=== PATIENT | male | born 2000 | race Caucasian/White ===

== ENCOUNTER 2024-04-19 11:27 | Outpatient (AMB) | payer OTHER, SELFPAY ==
[2024-04-19 11:30] VITALS: BP 126/78; PULSE 102; O2SAT 99; BMI 25.5
--- NOTE | 2024-04-19 11:30 | MHC.PC.OV ---
Vital Signs 04/19/24 11:30 Height 6 ft 3 in Weight 204 lb BMI 25.5 BP 126/78 Blood Pressure Location Lt brachial Position Sitting Pulse 102 H Pulse Source Pulse Oximeter Pulse Oximetry (%) 99 Oxygen Delivery Method Room Air Intake Visit Reasons: establish care Rn Medicare Required: No Accompanied by: Self / Same As Patient Allergies No Known Allergies Allergy (Verified 04/19/24 11:52) Medication List - Last Reconciled 04/19/24 by Casey Bartlett PA-C loratadine (Claritin) 10 mg PO DAILY Tobacco use date assessed: 04/19/24 Dental Screening Dental Screen Date: 04/19/24 Did you have a dental visit in the last 12 months?: Yes Did you have a dental problem in the last 6 months where you did not have access to dental care?: No Was dental information given to patient?: Patient has dentist HPI establish care HPI Details Patient is a 23-year-old male here today for establish care visit. Previous PCP was at a pediatrics office at [place]. Patient has a past medical history significant for asthma, environmental allergies, Raynaud's syndrome. .. asthma: Has been fairly well controlled without much use of an albuterol inhaler. His like to have albuterol inhaler on hand just in case him most of use issues I his allergies to which he has taken loratadine with good relief vaccines: Up-to-date [facility] Family History (Updated 04/19/24 @ 12:01 by Casey Bartlett PA-C) Mother Thyroid cancer ALS (amyotrophic lateral sclerosis) Social History (Updated 04/19/24 @ 12:01 by Casey Bartlett PA-C) Housing: House Patient Tobacco Use Status: Never used Tobacco e-Cigarette/Vaping Use: Never Used Second Hand Smoke Exposure: No service: No Current occupational status: employed Current occupation: [employer] Current occupational exposures/hazards: No Cognitive needs: No Hearing needs: No Vision needs: No Questionnaire PHQ-9 Over the last 2 weeks, how often have you been bothered by any of the following problems? 1. Little interest or pleasure in doing things: not at all 2. Feeling down, depressed, or hopeless: not at all 3. Trouble falling or staying asleep, or sleeping too much: several days 4. Feeling tired or having little energy: several days 5. Poor appetite or overeating: not at all 6. Feeling bad about yourself - or that you are a failure or have let yourself or your family down: not at all 7. Trouble concentrating on things, such as reading the newspaper or watching television: not at all 8. Moving or speaking so slowly that other people could have noticed. Or the opposite - being so fidgety or restless that you have been moving around a lot more than usual: not at all 9. Thoughts that you would be better off or of hurting yourself in some way: not at all Total score: 2 Depression Screening Interpretation: Negative Depression Screening Done: Yes [id number] - PHQ-9 Billing: Yes Source: Developed by Drs. Chinedu Washington, Shell Toribio, Tk Parra and colleagues, with an educational yasemin from [employer]. Thrive Questionnaire Date Thrive assessed: 04/19/24 I am a: Patient What is your living situation today?: I have a steady place to live Within the past 12 months, did the food you bought not last and you didn't have the money to get more?: Never true Within the past 12 months, did you worry whether your food would run out before you got money to buy more?: Never true Do you have trouble paying for medicines?: No Do you have trouble getting transportation to medical appointments?: No Do you have trouble paying your heating and electricity bill?: No Do you have trouble taking care of your child, family member or friend?: No Do you have trouble with day-to-day activities such as bathing, preparing meals, shopping, managing finances, etc.?: No Are you currently unemployed and looking for a job?: No Are you interested in more education?: No Please select the resources that you would like help with: None Currently or been in a relationship where the following occur: No concerns reported THRIVE Score: 0 AUDIT C Alcohol Use Questionnaire (AUDIT-C) 1. How often do you have a drink containing alcohol?: 2-4 times a month 2. How many drinks containing alcohol do you have on a typical day when you are drinking?: 3 or 4 3. How often do you have six or more drinks on one occasion?: Less than monthly Total Score: 4 IVETTE-7 AMB Questionnaire IVETTE-7 Feeling nervous, anxious, or on edge: 0 = Not at all Not being able to stop or control worryin = Not at all Worrying too much about different things: 0 = Not at all Trouble relaxin = Not at all Being so restless that it is hard to sit still: 0 = Not at all Becoming easily annoyed or irritable: 0 = Not at all Feeling afraid as if something awful might happen: 0 = Not at all Total IVETTE-7 score (0-4 normal; 5-9 mild; 10-14 moderate; 15-21 severe): 0 Source: Developed by Drs. Chinedu Washington, Shell Toribio, Tk Parra and colleagues, with an educational yasemin from [employer]. IVETTE-7 Assessment Billing IVETTE-7 Assessment Tool: IVETTE-7 Assessment 70997 ACT Questionnaire In the past 4 weeks, how much of the time did your asthma keep you from getting as much done at work, school or at home?: None of the time During the past 4 weeks, how often have you had shortness of breath?: Not at all During the past 4 weeks, how often did your asthma symptoms wake you up at night or earlier than usual in the morning?: Not at all During the past 4 weeks, how often have you had to use your rescue inhaler or nebulizer medication?: Not at all How would you rate your asthma control during the past 4 weeks?: Completely controlled ACT Interpretation: Negative Score: 25 Review of Systems Const Denies headache(s) Eyes Denies loss of vision ENT Denies vertigo, Denies dizziness, Denies headache(s) and Denies sore throat Card Denies chest pain, Denies leg edema and Denies lightheadedness Resp Denies cough, Denies hemoptysis and Denies wheezing GI Denies abdominal pain, Denies melena, Denies constipation, Denies diarrhea and Denies vomiting Denies dysuria, Denies urinary frequency and Denies urinary urgency Musc Denies arthralgias, Denies joint swelling, Denies numbness and Denies tingling Neuro Denies Abnormal speech present, Denies behavioral changes, Denies vertigo, Denies dizziness, Denies headache(s), Denies loss of vision, Denies memory loss, Denies numbness and Denies tingling Psych Denies anxiety, Denies behavioral changes, Denies depression, Denies memory loss and Denies panic attacks Sai/Lymph Denies easy bleeding and Denies easy bruising Aller/Immun Denies wheezing Physical exam (Primary Care) Vital Signs: Last Vital Signs Pulse 102 H 04/19/24 11:30 BP 126/78 04/19/24 11:30 Pulse Ox 99 04/19/24 11:30 Oxygen Delivery Method Room Air 04/19/24 11:30 BMI result Body Mass Index 25.5 Tobacco/Smoking Status: Tobacco use Status Tobacco use date assessed 04/19/24 04/19/24 11:38 Patient Tobacco Use Status Never used Tobacco 04/19/24 12:01 e-Cigarette/Vaping Use Never Used 04/19/24 12:01 PHQ-9: PHQ-9 Score PHQ-9: Total score 2 04/19/24 12:03 Depression Screening Interpretation: Negative Thrive Assessment: Date of Thrive Assessment Date Thrive assessed 04/19/24 04/19/24 11:38 Currently or been in a relationship where the following occur: No concerns reported Const General: healthy appearing, no acute distress, alert and awake Nutritional Appearance: well nourished Orientation/consciousness: oriented to person, oriented to place and oriented to time HENMT Ears: TM's normal bilaterally General nose exam: Normal nasal mucous membranes and turbinates present Eyes Conjunctivae: conjunctivae normal Sclerae: sclerae normal Pupils: Equal, round and reactive pupils present Neck Neck: Yes no lymphadenopathy and Yes no JVD Thyroid: Thyroid normal Carotids: no bruits Resp Effort & Inspection: normal respiratory effort and not tachypneic Auscultation: no crackles, no rales, no rhonchi and no wheezes Cardio Rate: regular rate Rhythm: regular rhythm Heart sounds: no murmurs and normal S1 and S2 GI Palpation (GI): Soft to palpation, nontender, no hepatomegaly and no splenomegaly Auscultation: normal bowel sounds Skin General skin exam: no rashes or lesions noted and dry skin Neuro General: oriented to person, oriented to place and oriented to time Cranial nerves: Yes Equal, round and reactive pupils present Speech: No Abnormal speech present Gait exam (Neuro): Normal gait present Motor exam (neuro): no tremor noted Extrem Right upper extremity: full ROM Left upper extremity: full ROM Right lower extremity: full ROM; no edema Left lower extremity: full ROM; no edema Psych Mental Status: mental status grossly normal Speech and movement: Normal speech and movement present Affect: normal affect Attitude: cooperative Thought process: Normal thought process present Coding Level of Care Code New Pt Level 4 (46373) Diagnoses Non-seasonal allergic rhinitis due to other allergic trigger J30.89 Allergic rhinitis seasonality: non-seasonal Allergic rhinitis trigger: other Mild intermittent asthma without complication J45.20 Asthma complication type: uncomplicated Asthma persistence: intermittent Asthma severity: mild Screening for diabetes mellitus (DM) Z13.1 Additional Codes IVETTE-7 Assessment Billing - IVETTE-7 Assessment Tool: IVETTE-7 Assessment 73054 ([id number]) PHQ-9 - 99658 - PHQ-9 Billing: Yes ([id number]) Asthma Control Questionnaire - ACT Interpretation: Negative ([id number]) Assessment & Plan Assessment & Plan (1) Allergic rhinitis: Code(s): J30.9 - Allergic rhinitis, unspecified Category: Medical Qualifiers: Allergic rhinitis seasonality: non-seasonal Allergic rhinitis trigger: other Qualified Code(s): J30.89 - Other allergic rhinitis Plan: As per HPI patient is suffers with all year round allergies. Will do some allergy testing for region 1. He is interested in trying montelukast as an alternative allergy medication. He does by Flonase [id number] as well. (2) Asthma: Code(s): J45.909 - Unspecified asthma, uncomplicated Category: Medical Qualifiers: Asthma complication type: uncomplicated Asthma persistence: intermittent Asthma severity: mild Qualified Code(s): J45.20 - Mild intermittent asthma, uncomplicated Plan: Patient reports his asthma is fairly well controlled. He rarely has to use an albuterol inhaler though will like 1 on hand in case of exacerbation. (3) Screening for diabetes mellitus (DM): Code(s): Z13.1 - Encounter for screening for diabetes mellitus Category: Medical Plan: As per HPI Orders: Orders Complete Blood Count no Diff Today Z13.1 - Encounter for screening for diabetes mellitus Comprehensive [place]. Panel Fast Today Z13.1 - Encounter for screening for diabetes mellitus Resp Allergy Profile Region I Today J45.20 - Mild intermittent asthma, uncomplicated, R05.9 - Cough, unspecified Medications: New montelukast 10 mg PO DAILY 90 tabs 1RF 90 days J45.20 - Mild intermittent asthma, uncomplicated albuterol sulfate 90 mcg/actuation 1 inh inhalation QID PRN 8.5 grams 3RF shortness of breath or wheezing 30 days J45.20 - Mild intermittent asthma, uncomplicated
== END 2024-04-19 12:08 | disposition home or self-care (01) ==
LOC: HO.HMCH 11:28
PROVIDERS: Visit Provider Physician Assistant
DX: J30.89 Other allergic rhinitis (principal); J45.20 Mild intermittent asthma, uncomplicated; Z13.1 Encounter for screening for diabetes mellitus

== ENCOUNTER → 2024-04-19 11:27 | Outpatient (BNVA) | payer OTHER, SELFPAY | PROVIDERS: Visit Provider Physician Assistant | DX: J30.89 Other allergic rhinitis (principal); J45.20 Mild intermittent asthma, uncomplicated | CPT/HCPCS: 96127; 96160; 99202 ==

== ENCOUNTER 2024-05-02 09:44 | Outpatient (REF) | payer OTHER, SELFPAY ==
[2024-05-02 10:46] LABS: Hematocrit 44.5 % (42.0-52.0); Hemoglobin 14.8 g/dl (14.0-18.0); Mean Corpuscular HGB Conc 33.3 g/dl (31.0-36.0); Mean Corpuscular Hemoglobin 31.4 pg (27.0-33.0); Mean Corpuscular Volume 94.3 fL (80.0-98.0); Mean Platelet Volume 10.2 fL (9.4-12.4); Platelet Count 238 X10*3/uL (160-400); Red Blood Count 4.72 X10*6/uL (4.60-5.80); Red Cell Distribution Width 11.9 % (11.0-16.0); White Blood Count 4.1 X10*3/uL (4.8-10.8)
[2024-05-02 12:01] LABS: Alanine Aminotransferase 19 U/L (0-40); Albumin Level 4.6 g/dL (3.5-5.0); Alkaline Phosphatase 74 U/L (39-117); Anion Gap 9 (12-20); Aspartate Amino Transferase 21 U/L (5-37); Bilirubin Total 0.8 mg/dL (0.0-1.0); Blood Urea Nitrogen 15 mg/dL (9-16); Calcium 9.5 mg/dL (8.4-10.2); Carbon Dioxide 27 mmol/L (22-29); Chloride 108 mmol/L (96-108); Estimated Glomerular Filt Rate > 60; Glucose Fasting 77 mg/dL (60-99); Potassium 4.2 mmol/L (3.3-5.1); Sodium 140 mmol/L (135-145); Total Protein 7.3 g/dL (6.5-8.0)
[2024-05-15 11:16] LABS: Class Cockroach 0; Class Mouse Urine Protein 3; E072-IgE Mouse Urine 1.32; I006-IgE Cockroach, German <0.10; Immunoglobulin E 280
[2024-05-15 11:17] LABS: Class Cat Dander 2; Class Dog Dander 3; E001 - IgE Cat Dander 2.12; E005 - IgE Dog Dander 3.87
[2024-05-15 11:18] LABS: Class Alternaria alternata 0; Class Aspergillus fumigatus 1; Class Cladosporium herbarum 0; Class Mountain Cedar 1; Class Oak 3; Class Timothy Grass 2; G006 - IgE Timothy Grass 0.86; M002 - IgE Cladosporium herbar <0.10; M003 - IgE Aspergillus fumigat 0.38; M006 - IgE Alternaria alternat <0.10; T006 - IgE Cedar, Mountain 0.49; T007 - IgE Oak, White 9.46; T010 - IgE Walnut 1.51
[2024-05-15 11:19] LABS: Class Common Ragweed 3; Class Cottonwood 2; Class Mugwort 0/1; Class Sycamore 1; Class Walnut Tree 2; Class White Ash 2; Class White Mulberry 0; T011 - IgE Maple Leaf Sycamore 0.69; T014 - IgE Cottonwood 1.18; T015 - IgE Ash, White 3.21; T070 - IgE White Mulberry <0.10; W001 - IgE Ragweed, Short 5.55; W006 - IgE Mugwort 0.23
[2024-05-15 11:20] LABS: Class Bermuda Grass 1; Class Birch 3; Class Derm. pterony 5; Class Dermatophagoides farinae 4; Class Penicillium crysogenum 0; G002 IgE Bermuda Grass 0.36; M001 IgE Penicillium chrysogen <0.10
[2024-05-15 11:21] LABS: Class Elm 2; Class Maple Box Elder 1; Class Rough Pigweed 1; Class Sheep Sorrel 1; T001 IgE Maple/Box Elder 0.63; T008 IgE Elm, American 1.25; W014 IgE Pigweed, Common 0.61; W018 IgE Sheep Sorrel 0.55
== END 2024-05-02 09:45 | disposition home or self-care (01) ==
LOC: HO.LAB 09:44
PROVIDERS: PCP Physician Assistant; Visit Provider Physician Assistant
DX: Z13.1 Encounter for screening for diabetes mellitus (principal); R05.9 Cough, unspecified; J45.20 Mild intermittent asthma, uncomplicated
CPT/HCPCS: 36415; 80053; 82785; 85027; 86003

== ENCOUNTER 2024-10-25 14:23 | Outpatient (AMB) | payer OTHER, SELFPAY ==
--- NOTE | 2024-10-25 14:34 | A.OFFPC_ITS ---
Vital Signs 10/25/24 14:35 Height 6 ft 3 in Weight 191 lb 2 oz BMI 23.9 BP 130/72 Blood Pressure Location Lt brachial Position Sitting Pulse 87 Pulse Source Pulse Oximeter Temp 97.5 F Temp Source Temporal Artery Scan Pulse Oximetry (%) 98 Oxygen Delivery Method Room Air Intake Visit Reasons: pe Intake Note: Patient is here today for a physical. Parachute Line Tier Required: No Shake Packer: Not Required per policy Accompanied by: Self / Same As Patient Allergies No Known Allergies Allergy (Verified 10/25/24 15:07) Medication List - Last Reconciled 10/25/24 by Casey Bartlett PA-C albuterol sulfate 90 mcg/actuation 1 inh inhalation QID PRN 30 days loratadine (Claritin) 10 mg PO DAILY montelukast 10 mg PO DAILY 90 days Tobacco use date assessed: 10/25/24 Dental Screening Dental Screen Date: 04/19/24 HPI pe HPI Details Patient is a 24-year-old male here today for an annual physical Patient has a past medical history significant for asthma, environmental allergies, Raynaud's syndrome. .. asthma: Has been fairly well controlled without much use of an albuterol inhaler. He has done allergy testing was does show multiple environmental allergies. He continues with Singulair which has been very effective for him. vaccines: Up-to-date [facility] Surgical History History of hernia surgery History of wisdom tooth extraction Family History Mother Thyroid cancer ALS (amyotrophic lateral sclerosis) Social History Housing: House Alcohol intake: current Alcohol intake frequency: holidays/special occasions only Patient Tobacco Use Status: Never used Tobacco e-Cigarette/Vaping Use: Never Used Second Hand Smoke Exposure: No service: No Current occupational status: employed Current occupation: [employer] Current occupational exposures/hazards: No Cognitive needs: No Hearing needs: No Vision needs: No Questionnaire Thrive Questionnaire Date Thrive assessed: 04/19/24 I am a: Patient What is your living situation today?: I have a steady place to live Within the past 12 months, did the food you bought not last and you didn't have the money to get more?: Never true Within the past 12 months, did you worry whether your food would run out before you got money to buy more?: Never true Do you have trouble paying for medicines?: No Do you have trouble getting transportation to medical appointments?: No Do you have trouble paying your heating and electricity bill?: No Do you have trouble taking care of your child, family member or friend?: No Do you have trouble with day-to-day activities such as bathing, preparing meals, shopping, managing finances, etc.?: No Are you currently unemployed and looking for a job?: No Are you interested in more education?: No Please select the resources that you would like help with: None Currently or been in a relationship where the following occur: No concerns reported THRIVE Score: 0 IVETTE-7 AMB Questionnaire IVETTE-7 Date IVETTE - 7 assessed: 04/19/24 Source: Developed by Drs. Chinedu Washington, Shell Toribio, Tk perez nd colleagues, with an educational yasemin from [employer]. ACT Questionnaire In the past 4 weeks, how much of the time did your asthma keep you from getting as much done at work, school or at home?: None of the time During the past 4 weeks, how often have you had shortness of breath?: Not at all During the past 4 weeks, how often did your asthma symptoms wake you up at night or earlier than usual in the morning?: Not at all During the past 4 weeks, how often have you had to use your rescue inhaler or nebulizer medication?: Not at all How would you rate your asthma control during the past 4 weeks?: Completely controlled ACT Interpretation: Negative Score: 25 Review of Systems Const Denies body aches, Denies chills, Denies excessive sweating, Denies fatigue, Denies fever(s) and Denies headache(s) Eyes Denies blurry vision ENT Denies dysphagia, Denies vertigo, Denies dizziness, Denies headache(s), Denies hearing loss and Denies tinnitus Card Denies chest pain, Denies chest pain with activity, Denies syncope, Denies irregular heart rhythm and Denies dyspnea Resp Denies chest congestion, Denies cough, Denies hemoptysis, Denies dyspnea and Denies wheezing GI Denies abdominal pain, Denies melena, Denies hematochezia, Denies coffee ground emesis, Denies dysphagia, Denies diarrhea, Denies nausea and Denies vomiting Denies difficulty urinating, Denies dysuria, Denies urinary frequency, Denies urinary hesitancy and Denies urinary urgency Musc Denies arthralgias, Denies limited range of motion, Denies muscle cramps and Denies muscle weakness Skin/Breast Denies rash and Denies skin ulcer Neuro Denies Abnormal speech present, Denies confusion, Denies vertigo, Denies dizziness, Denies syncope, Denies headache(s), Denies memory loss and Denies seizure-like activity Psych Denies anxiety, Denies confusion, Denies depression, Denies memory loss, Denies panic attacks and Denies paranoia Endo Denies excessive sweating, Denies fatigue, Denies flushing, Denies polydipsia and Denies polyuria Aller/Immun Denies wheezing Physical exam (Primary Care) Vital Signs: Last Vital Signs Temp 97.5 F 10/25/24 14:35 Pulse 87 10/25/24 14:35 BP 130/72 10/25/24 14:35 Pulse Ox 98 10/25/24 14:35 Oxygen Delivery Method Room Air 10/25/24 14:35 BMI result Body Mass Index 23.9 Tobacco/Smoking Status: Tobacco use Status Tobacco use date assessed 10/25/24 10/25/24 14:40 Patient Tobacco Use Status Never used Tobacco 10/25/24 14:40 e-Cigarette/Vaping Use Never Used 10/25/24 14:40 Thrive Assessment: Date of Thrive Assessment Date Thrive assessed 04/19/24 10/25/24 14:40 Currently or been in a relationship where the following occur: No concerns reported Const General: cooperative, comfortable, no acute distress, alert and awake; No confusion Orientation/consciousness: oriented to person, oriented to place, patient oriented x3 and No confusion HENMT Head: Yes normocephalic Ears: external ears normal and TM's normal bilaterally Face and sinus: No sinus tenderness Mouth: Normal oral and palatal mucosa present and tongue normal Teeth and gingiva: dentition normal and gingiva normal Throat: Yes posterior oropharynx normal, Yes tonsils normal and Yes uvula midline Eyes Conjunctivae: conjunctivae normal Sclerae: sclerae normal Pupils: Equal, round and reactive pupils present EOM: EOMs intact bilaterally Direct Ophthalmoscopy: No no photophobia Neck Neck: Yes no lymphadenopathy, No tender and Yes no JVD Thyroid: Thyroid normal Carotids: no bruits Chest Chest palpation & inspection: no tenderness Resp Effort & Inspection: normal respiratory effort, no audible wheezes, not labored and no stridor Auscultation: no crackles, no rales, no rhonchi and no wheezes Cardio Jugular venous distension: no JVD Rate: regular rate, not bradycardic and not tachycardic Rhythm: regular rhythm Bruits: no carotid bruits Peripheral pulses: Peripheral pulses 2+ throughout GI Inspection: Yes normal to inspection, No abdominal wall ecchymosis and No visible herniation Palpation (GI): Soft to palpation, nontender, no guarding, not rigid and No hepatosplenomegaly present Auscultation: normoactive bowel sounds General: Yes no CVA tenderness Back/Spine/Pelvis Back: no CVA tenderness and No back tenderness Cervical Spine: cervical ROM normal Thoracic/Lumbar Spine: thoracic and lumbar spine normal to inspection, straight leg raise negative bilaterally, No thoraco-lumbar ROM limited and No lumbar spinal tenderness Skin Lesions: no lesions Rashes: no rashes Wounds: no wounds Neuro General: oriented to person, oriented to place, patient oriented x3, CN's II-XI intact bilaterally and No confusion Cranial nerves: Yes Equal, round and reactive pupils present and Yes Normal accommodation reflex present Cognition (Neuro): normal cognition Speech: No Abnormal speech present Gait exam (Neuro): Normal gait present Motor exam (neuro): 5/5 motor strength present throughout Extrem Right upper extremity: full ROM; no cyanosis Left upper extremity: full ROM; no cyanosis Right lower extremity: no edema Left lower extremity: no edema Psych Appearance: grossly normal Mental Status: mental status grossly normal Affect: normal affect Attitude: cooperative Thought process: Normal thought process present Coding Level of Care Code Est Pt Prev Care 18-39y(79331) Diagnoses Annual physical exam Z00.00 Mild intermittent asthma without complication J45.20 Asthma severity: mild Asthma persistence: intermittent Asthma complication type: uncomplicated Non-seasonal allergic rhinitis due to other allergic trigger J30.89 Allergic rhinitis trigger: other Allergic rhinitis seasonality: non-seasonal Additional Codes Asthma Control Questionnaire - ACT Interpretation: Negative ([id number]) Assessment & Plan Assessment & Plan (1) Annual physical exam: Code(s): Z00.00 - Encounter for general adult medical examination without abnormal findings Category: Medical Plan: Has been HPI (2) Asthma: Code(s): J45.909 - Unspecified asthma, uncomplicated Category: Medical Qualifiers: Asthma severity: mild Asthma persistence: intermittent Asthma complication type: uncomplicated Qualified Code(s): J45.20 - Mild intermittent asthma, uncomplicated Plan: The patient's asthma is well-controlled with current management strategies. He reports no recent exacerbations or respiratory distress. Continued monitoring and medication adherence are advised. (3) Allergic rhinitis: Code(s): J30.9 - Allergic rhinitis, unspecified Category: Medical Qualifiers: Allergic rhinitis trigger: other Allergic rhinitis seasonality: non- seasonal Qualified Code(s): J30.89 - Other allergic rhinitis Plan: The patient has allergic rhinitis confirmed by allergy testing, which revealed multiple environmental allergies. He is currently on allergy medication, which has been effective in managing his symptoms. Continued use of allergy medication is recommended, with refills as needed. Orders: Orders Comprehensive [place]. Panel Fast 10/25/24 Z13.1 - Encounter for screening for diabetes mellitus Complete Blood Count no Diff 10/25/24 J45.20 - Mild intermittent asthma, uncomplicated
[2024-10-25 14:35] VITALS: BP 130/72; PULSE 87; TEMP 36.4; O2SAT 98; BMI 23.9
--- OUTSIDE RECORDS SUMMARY | 2024-10-25 16:13 | XMS_ITS ---
Author Name [facility] Organization Unknown Care Team Organization Name Specialty Phone Email Start Date End Da te [facility] Sharif Sneed Primary [facility] 04/14/202209/07 [facility] Elidia Boothe Primary Care 12/15/[id number]
== END 2024-10-25 15:19 | disposition home or self-care (01) ==
LOC: HO.HMCH 14:24
PROVIDERS: PCP Physician Assistant; Visit Provider Physician Assistant
DX: Z00.00 Encounter for general adult medical examination without abnormal findings (principal); J45.20 Mild intermittent asthma, uncomplicated; J30.89 Other allergic rhinitis

== ENCOUNTER → 2024-10-25 14:23 | Outpatient (BNVA) | payer OTHER, SELFPAY | PROVIDERS: PCP Physician Assistant; Visit Provider Physician Assistant | DX: Z00.00 Encounter for general adult medical examination without abnormal findings (principal); J45.20 Mild intermittent asthma, uncomplicated; J30.89 Other allergic rhinitis | CPT/HCPCS: 96160; 99395 ==